=== PATIENT | male | born 1955 | race Caucasian/White ===

== ENCOUNTER 2016-07-13 21:15 | Emergency (ER) | payer BC ==
[2016-07-13 20:38] LABS: BASOPHILS 0.2 %; BASOPHILS ABSOLUTE 0.03 10/3/uL (0.0-0.16); EOSINOPHILS 1.1 %; EOSINOPHILS ABSOLUTE 0.14 10/3/uL (0.0-0.53); HEMOGLOBIN 9.9 g/dL (13.6-17.8); IMMATURE GRANULOCYTES ABSOLUTE 0.13 10/3/uL (0.0-0.11); LYMPHOCYTES ABSOLUTE 2.28 10/3/uL (0.67-4.30); MEAN CORPUS HGB CONC 33.8 g/dL (32.0-36.0); MEAN CORPUSCULAR HEMOGLOB 29.7 pg (26.0-34.0); MONOCYTES 7.7 %; MONOCYTES ABSOLUTE 0.98 10/3/uL (0.21-1.20); PLATELET COUNT 64 10/3/uL (150-400); RBC DISTRIBUTION WIDTH 18.8 % (12.0-16.0); RED CELL COUNT 3.33 10/6/uL (4.7-6.1)
[2016-07-13 20:39] LABS: ER CBC TAT 0 Hrs 07 Mins; HEMATOCRIT 29.3 % (40.0-51.0); WHITE BLOOD CELLS 12.7 10/3/uL (4.5-10.5)
[2016-07-13 20:40] LABS: MANUAL DIFF NO %
[2016-07-13 20:45] LABS: ASCORBIC ACID (UR NOT ORDER) NEG (NEG); BILIRUBIN, URINE NEGATIVE (NEG); ER URINALYSIS TAT 0 Hrs 13 Mins; KETONE, URINE NEGATIVE (NEG); LEUKOCYTE ESTERASE(NOT OR NEG (NEG); NITRITE (URINE) NEG (NEG); WBC (NOT ORDERED) (RFLEX) 3 (0-5)
[2016-07-13 20:53] LABS: A/G RATIO 0.4 (0.7-1.9); ALBUMIN 2.4 G/DL (3.5-5.0); ALKALINE PHOSPHATASE 753 U/L (45-117); CO2 (CARBON DIOXIDE) 30 MMOL/L (24-34); GLOBULIN 5.4 G/DL (2.5-4.1); GLUCOSE, SERUM 109 MG/DL (60-99); POTASSIUM, SERUM 4.2 MMOL/L (3.5-5.3); SGOT(AST) 89 U/L (5-40); SGPT(ALT) 19 U/L (5-65); TOTAL BILIRUBIN 0.7 MG/DL (0-1.2); TOTAL PROTEIN 7.8 G/DL (6.0-8.5)
[2016-07-13 20:54] LABS: BUN (BLOOD UREA NITROGEN) 19 MG/DL (6-23); CALCIUM, SERUM 8.3 MG/DL (8.5-10.4); CHLORIDE, SERUM 90 MMOL/L (96-112); GFR AFRICAN AMERICAN 54 ML/MIN (>=60); GFR NON AFRICAN AMERICAN 46 ML/MIN (>=60); SODIUM, SERUM 129 MMOL/L (135-148)
[2016-07-13 20:57] LABS: ANISOCYTOSIS 1+ (5-10/OIF) (0-5/OIF); PLATELET ESTIMATE DEC (ADEQUATE); SPHEROCYTES OCC (0-2/OIF)
[~2016-07-13 21:15] MED LIST: COMP10B PO; GLUCOPHAGE1000 MG PO; PRILO PO; ROXICODONE30 MG PO; XANAX2 MG PO
== END 2016-07-13 21:33 | disposition home or self-care (01) ==
LOC: ER 21:15
PROVIDERS: Emergency Medicine
DX: K56.41 Fecal impaction (principal); Z79.899 Other long term (current) drug therapy
CPT/HCPCS: 80053; 81001; 83690; 85025; 99283; A9270-GY